=== PATIENT | male | born 1980 | race Caucasian/White ===

== ENCOUNTER 2021-08-11 18:49 | Emergency (ER) | payer MEDICAID ==
[~2021-08-11] VITALS: Ht 188 cm; Wt 81.2 kg
[~2021-08-11 18:49] MED LIST: IMO2C PO; NO HOME MEDS
[2021-08-11 19:10] VITALS: BP 128/72
[2021-08-11] MEDS ORDERED: SULF1TAB49 PO (19:32)
[2021-08-11] MEDS ORDERED: sulfamethoxazole/trimethoprim DS (800/160mg) tablet PO ONE (19:35)
== END 2021-08-11 19:52 | disposition home or self-care (01) ==
LOC: ER 18:49
DX: L02.415 Cutaneous abscess of right lower limb (principal); L03.115 Cellulitis of right lower limb; Z56.0 Unemployment, unspecified; Z79.899 Other long term (current) drug therapy
CPT/HCPCS: 99283

== ENCOUNTER 2021-08-15 09:47 | Emergency (ER) | payer MEDICAID ==
[~2021-08-15] VITALS: Ht 188 cm; Wt 77.3 kg
[~2021-08-15 09:47] MED LIST changes: +SULF1TAB49 PO
[2021-08-15 09:48] VITALS: BP 120/86
== END 2021-08-15 10:24 | disposition left against medical advice (07) ==
LOC: ER 09:47
DX: M25.561 Pain in right knee (principal); Z53.21 Procedure and treatment not carried out due to patient leaving prior to being seen by health care provider